=== PATIENT | female | born 1955 | race American Indian/Alaskan Native ===

== ENCOUNTER 2019-03-18 17:23 | Emergency (ER) | payer OTHER ==
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
[2019-03-18 17:51] VITALS: BP 148/84; PULSE 89; TEMP 97.8; BMI 20.6
[2019-03-18] MEDS ORDERED: KETOROLAC TROMETHAMINE 30 MG/1 ML VIAL IM ONE (18:19)
[2019-03-18] MEDS ORDERED: KETOROLAC TROMETHAMINE 30 MG/1 ML VIAL ONE (18:22)
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
== END 2019-03-18 19:14 | disposition home or self-care (01) ==
LOC: JER 17:23
PROC: 3E0233Z Introduction of Anti-inflammatory into Muscle, Percutaneous Approach (ICD-10-PCS; principal; 2019-03-18)
DX: M25.561 Pain in right knee (principal); E03.9 Hypothyroidism, unspecified; V03.10XA Pedestrian on foot injured in collision with car, pick-up truck or van in traffic accident, initial encounter; Y93.89 Activity, other specified; Y92.410 Unspecified street and highway as the place of occurrence of the external cause
CPT/HCPCS: 73562-TC-RT-FY; 73590-TC-RT-FY; 99282-25